=== PATIENT | male | born 1990 | race Caucasian/White ===

== ENCOUNTER 2018-01-03 04:24 | Emergency (ER) | payer OTHER ==
[2018-01-03] MEDS ORDERED: MAGNE/ALUM HYDROXD 30 ML UCUP ONE (04:53)
[2018-01-03] MEDS ORDERED: LIDOCAINE VISCOUS 2% SOLN 15 ML UDC ONE (04:55)
[2018-01-03 06:06] LABS: Absolute Monocytes 0.2 K/uL (0.1-1.3); Absolute Neutrophil 6.4 K/uL (1.8-8.0); Basophils % 0.3 % (0-1.3); Hematocrit 45.9 % (39.6-49.0); Lymphocytes % 12.6 % (15.3-44.8); MCH 29.8 pg (27.0-35.0); MCV 86.3 fL (80-100); MPV 11.1 fL (7.6-11.3); Monocytes % 3.2 % (3.3-12.3); RBC Red Blood Cell Count 5.33 M/uL (4.33-5.43)
[2018-01-03 06:18] LABS: ALT/SGPT 63 U/L (12-78); AST/SGOT 21 U/L (15-37); Albumin 4.3 g/dL (3.4-5.0); Alkaline Phosphatase 62 U/L (45-117); BUN Blood Urea Nitrogen 11 mg/dL (7-18); Bicarbonate 25 mmol/L (21-32); Bilirubin Direct < 0.1 mg/dL (0-0.2); Bilirubin Total 0.2 mg/dL (0.2-1.0); Glucose Level 120 mg/dL (74-106); Lipase 139 U/L (73-393); Potassium 3.8 mmol/L (3.5-5.1); Protein, Total 7.4 g/dL (6.4-8.2); Sodium Level 142 mmol/L (136-145)
--- NOTE | 2018-01-03 06:29 | EDPHYS ---
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 04:40 The patient presents with abdominal pain in the epigastric area. Onset: The tw4 symptoms/episode began/occurred today. The symptoms do not radiate. Associated signs and symptoms: none. The symptoms are described as dull. Modifying factors: The symptoms are alleviated by nothing, the symptoms are aggravated by alcohol. The patient has not experienced similar symptoms in the past. Historical: - Allergies: 04:38 No Known Allergies; lp1 - Home Meds: 04:38 None [Active]; lp1 - PMHx: 04:38 None; lp1 - PSHx: 04:38 None; lp1 - Immunization history:: Adult Immunizations up to date. - Social history:: Smoking status: Patient/guardian denies using tobacco. - Ebola Screening: : No symptoms or risks identified at this time. ROS: 04:40 Constitutional: Negative for fever, chills, and weight loss, Eyes: Negative for injury, tw4 pain, redness, and discharge, Cardiovascular: Negative for chest pain, palpitations, and edema, Respiratory: Negative for shortness of breath, cough, wheezing, and pleuritic chest pain, Back: Negative for injury and pain, MS/Extremity: Negative for injury and deformity, Skin: Negative for injury, rash, and discoloration. 04:40 Abdomen/GI: Positive for abdominal pain, Negative for nausea and vomiting, nausea, vomiting, and diarrhea, nausea, vomiting. Exam: 04:40 Constitutional: This is a well developed, well nourished patient who is awake, alert, tw4 and in no acute distress. Head/Face: Normocephalic, atraumatic. Chest/axilla: Normal chest wall appearance and motion. Nontender with no deformity. No lesions are appreciated. Cardiovascular: Regular rate and rhythm with a normal S1 and S2. No gallops, murmurs, or rubs. Normal PMI, no JVD. No pulse deficits. Respiratory: Lungs have equal breath sounds bilaterally, clear to auscultation and percussion. No rales, rhonchi or wheezes noted. No increased work of breathing, no retractions or nasal flaring. Abdomen/GI: Soft, non-tender, with normal bowel sounds. No distension or tympany. No guarding or rebound. No evidence of tenderness throughout. Back: No spinal tenderness. No costovertebral tenderness. Full range of motion. MS/ Extremity: Pulses equal, no cyanosis. Neurovascular intact. Full, normal range of motion. Neuro: Awake and alert, GCS 15, oriented to person, place, time, and situation. Cranial nerves II-XII grossly intact. Motor strength 5/5 in all extremities. Sensory grossly intact. Cerebellar exam normal. Normal gait. Vital Signs: 04:38 BP 118 / 80; Pulse 80; Resp 16; Temp 97.7(O); Pulse Ox 98% on R/A; Weight 81.65 kg; lp1 Height 5 ft. 8 in. (172.72 cm); Pain 7/10; 05:48 BP 116 / 80; Pulse 60; Resp 16; Pulse Ox 99% on R/A; rr5 06:27 BP 114 / 62; Pulse 60; Resp 18; Pulse Ox 98% on R/A; tl2 04:38 Body Mass Index 27.37 (81.65 kg, 172.72 cm) lp1 MDM: 04:31 Patient medically screened. tw4 06:29 Differential diagnosis: pancreatitis, Peptic Ulcer Disease, Perf. Duodenal Ulcer, Perf. tw4 Gastric Ulcer, Prostatitis. Data reviewed: vital signs, nurses notes. Data interpreted: Pulse oximetry: Interpretation: normal. Counseling: I had a detailed discussion with the patient and/or guardian regarding: the historical points, exam findings, and any diagnostic results supporting the discharge/admit diagnosis. Medication response: GI Cocktail relieved the patient's pain. The symptoms have resolved. Response to treatment: the patient's symptoms have resolved after treatment, and as a result, I will discharge patient. Special discussion: I discussed with the patient/guardian in detail that at this point there is no indication for admission to the hospital. It is understood, however, that if the symptoms persist or worsen the patient needs to return immediately for re-evaluation. 01/03 04:38 Order name: Basic Metabolic Panel tw4 01/03 04:38 Order name: CBC with Diff 4 01/03 04:38 Order name: Creatinine for Radiology tw4 01/03 04:38 Order name: Hepatic Function tw4 01/03 04:38 Order name: Lipase 4 01/03 04:38 Order name: IV Saline Lock; Complete Time: 04:54 tw4 01/03 04:38 Order name: Labs collected and sent; Complete Time: 04:54 tw4 Administered Medications: 04:40 CANCELLED (No ): GI Cocktail with - (Maalox Suspension 30 ml, lp1 Lidocaine Liquid 2 % 20 ml, Phenobarbital-Belladonna 10 ml) PO once 04:54 Drug: GI Cocktail without - (Maalox Suspension 30 ml, Lidocaine Liquid 2 % 15 rr5 ml) Route: PO; 06:38 Follow up: Response: No adverse reaction tl2 Disposition: 01/03/18 06:28 Discharged to Home. Impression: Gastritis, unspecified, without bleeding. - Condition is Stable. - Discharge Instructions: Gastritis, Adult. - Prescriptions for Protonix 40 mg Oral Tablet - take 1 tablet by ORAL route once daily; 30 tablet. - Medication Reconciliation Form, Thank You Letter, Antibiotic Education, Prescription Opioid Use form. - Follow up: Private Physician; When: Upon discharge from the Emergency Department; Reason: Recheck today's complaints, Continuance of care. - Problem is new. - Symptoms have improved. Signatures: Dispatcher [employer] EDMS Stacy Pérez RN RN lp1 Charissa Nina RN RN tl2 Gerard Pérez MD MD tw4 Gustavo Brown RN RN rr5 Corrections: (The following items were deleted from the chart) 04:40 04:38 GI Cocktail with - (Maalox 30 ml, Lidocaine 20 ml, lp1 Phenobarbital-Belladonna 10 ml) PO once ordered. tw4 06:38 06:28 01/03/2018 06:28 Discharged to Home. Impression: Gastritis, unspecified, without tl2 bleeding. Condition is Stable. Forms are Medication Reconciliation Form, Thank You Letter, Antibiotic Education, Prescription Opioid Use. Follow up: Private Physician; When: Upon discharge from the Emergency Department; Reason: Recheck today's complaints, Continuance of care. Problem is new. Symptoms have improved. tw4
--- NOTE | 2018-01-03 06:29 | ER ---
Nurse's Notes [facility] Name: Alton Chung Age: 27 yrs Sex: Male : 1990 Arrival Date: 01/03/2018 Time: 04:27 Bed 7 Private MD: Diagnosis: Gastritis, unspecified, without bleeding Presentation: 01/03 04:37 Presenting complaint: Patient states: Epigastric pain that began this AM with vomiting; lp1 Patient states hx of gallbladder pain frequently but worse this AM. Transition of care: patient was not received from another setting of care. Onset of symptoms was January 03, 2018. Risk Assessment: Do you want to hurt yourself or someone else? Patient reports no desire to harm self or others. Initial Sepsis Screen: Does the patient meet any 2 criteria? No. Patient's initial sepsis screen is negative. Does the patient have a suspected source of infection? No. Patient's initial sepsis screen is negative. Care prior to arrival: None. 04:37 Method Of Arrival: Wheelchair lp1 04:37 Acuity: SHANE 3 lp1 Historical: - Allergies: 04:38 No Known Allergies; lp1 - Home Meds: 04:38 None [Active]; lp1 - PMHx: 04:38 None; lp1 - PSHx: 04:38 None; lp1 - Immunization history:: Adult Immunizations up to date. - Social history:: Smoking status: Patient/guardian denies using tobacco. - Ebola Screening: : No symptoms or risks identified at this time. Screenin:39 Abuse screen: Denies threats or abuse. Denies injuries from another. Nutritional lp1 screening: No deficits noted. Tuberculosis screening: No symptoms or risk factors identified. Fall Risk None identified. Assessment: 04:56 General: Appears in no apparent distress. comfortable, Behavior is calm, cooperative, rr5 appropriate for age. Pain: Complains of pain in epigastric area Pain does not radiate. Pain currently is 7 out of 10 on a pain scale. Quality of pain is described as aching, Pain began suddenly, Is. Neuro: Level of Consciousness is Oriented to person, place, time, Moves all extremities. Cardiovascular: Capillary refill < 3 seconds. Respiratory: Airway is patent. GI: Abdomen is flat, non-distended, Reports vomiting. : No signs and/or symptoms were reported regarding the genitourinary system. EENT: No signs and/or symptoms were reported regarding the EENT system. Derm: No signs and/or symptoms reported regarding the dermatologic system. Musculoskeletal: No signs and/or symptoms reported regarding the musculoskeletal system. 06:36 Reassessment: Patient appears in no apparent distress at this time. Patient and/or tl2 family updated on plan of care and expected duration. Pain level reassessed. Patient is alert, oriented x 3, equal unlabored respirations, skin warm/dry/pink. Pt verbalized understanding of discharge instructions, need for follow up and prescription usage. Vital Signs: 04:38 BP 118 / 80; Pulse 80; Resp 16; Temp 97.7(O); Pulse Ox 98% on R/A; Weight 81.65 kg; lp1 Height 5 ft. 8 in. (172.72 cm); Pain 7/10; 05:48 BP 116 / 80; Pulse 60; Resp 16; Pulse Ox 99% on R/A; rr5 06:27 BP 114 / 62; Pulse 60; Resp 18; Pulse Ox 98% on R/A; tl2 04:38 Body Mass Index 27.37 (81.65 kg, 172.72 cm) lp1 ED Course: 04:27 Patient arrived in ED. ds1 04:31 Gerard Pérez MD is Attending Physician. tw4 04:38 Triage completed. lp1 04:39 Arm band placed on left wrist. lp1 04:39 Patient has correct armband on for positive identification. Pulse ox on. NIBP on. lp1 04:55 Inserted saline lock: 20 gauge in right antecubital area, using aseptic technique. rr5 Blood collected. inserted by [employer]. 06:36 No provider procedures requiring assistance completed. IV discontinued, intact, tl2 bleeding controlled, No redness/swelling at site. Pressure dressing applied. Administered Medications: 04:40 CANCELLED (No ): GI Cocktail with - (Maalox Suspension 30 ml, lp1 Lidocaine Liquid 2 % 20 ml, Phenobarbital-Belladonna 10 ml) PO once 04:54 Drug: GI Cocktail without - (Maalox Suspension 30 ml, Lidocaine Liquid 2 % 15 rr5 ml) Route: PO; 06:38 Follow up: Response: No adverse reaction tl2 Outcome: 06:28 Discharge ordered by . tw4 06:36 Discharged to home ambulatory, with family. tl2 06:36 Condition: stable 06:36 Discharge instructions given to patient, family, Instructed on discharge instructions, follow up and referral plans. medication usage, Demonstrated understanding of instructions, follow-up care, medications, Prescriptions given X 1. 06:38 Patient left the ED. tl2 Signatures: Geneva Ray ds1 Stacy Pérez RN RN lp1 Charissa Nina RN RN tl2 Gerard Pérez MD MD tw4 Gustavo Brown RN RN rr5
== END 2018-01-03 06:38 | disposition home or self-care (01) ==
LOC: ER 04:24
DX: K29.70 Gastritis, unspecified, without bleeding (principal)
CPT/HCPCS: 36415; 80048; 80076; 83690; 85025; 99284

== ENCOUNTER 2019-03-11 17:33 | Emergency (ER) | payer OTHER ==
[2019-03-11] MEDS ORDERED: IBUPROFEN 400 MG TAB ONE (17:57)
--- NOTE | 2019-03-11 18:52 | EDPHYS ---
Physician Documentation [facility] Name: Alton Chung Age: 28 yrs Sex: Male : 1990 Arrival Date: 03/11/2019 Time: 17:36 Bed 23 Private MD: ED Physician Jorge Alberto Costello HPI: 03/11 18:47 This 28 yrs old Male presents to ER via Ambulatory with complaints of Flu kb Symptoms. 18:47 The patient or guardian reports cough, that is intermittent, described as moderate, kb with no sputum, flu symptoms, low-grade fever, myalgias. Onset: The symptoms/episode began/occurred last night. Severity of symptoms: At their worst the symptoms were moderate, in the emergency department the symptoms are unchanged. Modifying factors: The symptoms are alleviated by nothing, the symptoms are aggravated by nothing. Associated signs and symptoms: Pertinent positives: fever, rhinorrhea. The patient has not experienced similar symptoms in the past. The patient has not recently seen a physician. Historical: - Allergies: 17:37 No Known Allergies; sg - Home Meds: 17:37 None [Active]; sg - PMHx: 17:37 None; sg - PSHx: 17:37 None; sg - Immunization history:: Adult Immunizations not up to date. - Social history:: Smoking status: Patient/guardian denies using tobacco. - Ebola Screening: : Patient negative for fever greater than or equal to 101.5 degrees Fahrenheit, and additional compatible Ebola Virus Disease symptoms Patient denies exposure to infectious person Patient denies travel to an Ebola-affected area in the 21 days before illness onset No symptoms or risks identified at this time. ROS: 18:46 Neck: Negative for injury, pain, and swelling, Cardiovascular: Negative for chest pain, kb palpitations, and edema, Abdomen/GI: Negative for abdominal pain, nausea, vomiting, diarrhea, and constipation, Back: Negative for injury and pain, MS/Extremity: Negative for injury and deformity, Skin: Negative for injury, rash, and discoloration. 18:46 Constitutional: Positive for body aches, chills, fatigue, fever, malaise. 18:46 ENT: Positive for rhinorrhea, sinus congestion. 18:46 Respiratory: Positive for cough. 18:46 Neuro: Positive for headache. Exam: 18:46 Constitutional: This is a well developed, well nourished patient who is awake, alert, kb and in no acute distress. Head/Face: Normocephalic, atraumatic. ENT: Nares patent. No nasal discharge, no septal abnormalities noted. Tympanic membranes are normal and external auditory canals are clear. Oropharynx with no redness, swelling, or masses, exudates, or evidence of obstruction, uvula midline. Mucous membranes moist. Neck: Trachea midline, no thyromegaly or masses palpated, and no cervical lymphadenopathy. Supple, full range of motion without nuchal rigidity, or vertebral point tenderness. No Meningismus. Chest/axilla: Normal chest wall appearance and motion. Nontender with no deformity. No lesions are appreciated. Cardiovascular: Regular rate and rhythm with a normal S1 and S2. No gallops, murmurs, or rubs. Normal PMI, no JVD. No pulse deficits. Respiratory: Lungs have equal breath sounds bilaterally, clear to auscultation and percussion. No rales, rhonchi or wheezes noted. No increased work of breathing, no retractions or nasal flaring. Abdomen/GI: Soft, non-tender, with normal bowel sounds. No distension or tympany. No guarding or rebound. No evidence of tenderness throughout. Skin: Warm, dry with normal turgor. Normal color with no rashes, no lesions, and no evidence of cellulitis. MS/ Extremity: Pulses equal, no cyanosis. Neurovascular intact. Full, normal range of motion. Neuro: Awake and alert, GCS 15, oriented to person, place, time, and situation. Cranial nerves II-XII grossly intact. Motor strength 5/5 in all extremities. Sensory grossly intact. Cerebellar exam normal. Normal gait. Vital Signs: 17:40 BP 152 / 69; Pulse 120; Resp 18; Temp 101.1; Pulse Ox 99% on R/A; Weight 81.65 kg; sg Height 5 ft. 8 in. (172.72 cm); 18:56 BP 142 / 74; Pulse 107; Resp 18; Temp 99.8(O); Pulse Ox 100% on R/A; mg2 17:40 Body Mass Index 27.37 (81.65 kg, 172.72 cm) sg MDM: 17:46 Patient medically screened. kb 18:46 Data reviewed: vital signs, nurses notes. Data interpreted: Pulse oximetry: on room air kb is 99 %. Interpretation: normal. 18:51 Counseling: I had a detailed discussion with the patient and/or guardian regarding: the kb historical points, exam findings, and any diagnostic results supporting the discharge/admit diagnosis, lab results, the need for outpatient follow up, a family practitioner, to return to the emergency department if symptoms worsen or persist or if there are any questions or concerns that arise at home. 03/11 17:48 Order name: Flu; Complete Time: 18:52 kb Administered Medications: 18:04 Drug: Ibuprofen 800 mg Route: PO; mg2 19:02 Follow up: Response: No adverse reaction; Temperature is decreased mg2 19:01 Drug: Tamiflu 75 mg Route: PO; mg2 19:02 Follow up: Response: No adverse reaction; Medication administered at discharge. mg2 Disposition: 03/11/19 18:51 Discharged to Home. Impression: Influenza due to certain identified influenza viruses. - Condition is Stable. - Discharge Instructions: Influenza, Adult, [id number]. - Prescriptions for Tamiflu 75 mg Oral Capsule - take 1 capsule by ORAL route every 12 hours for 5 days; 10 capsule. - Medication Reconciliation Form, Thank You Letter, Antibiotic Education, Prescription Opioid Use, Work release form form. - Follow up: Emergency Department; When: As needed; Reason: Worsening of condition. Follow up: Private Physician; When: 2 - 3 days; Reason: Recheck today's complaints, Continuance of care, Re-evaluation by your physician. Addendum: 03/18/2019 07:25 Co-signature as Attending Physician, Jorge Alberto Costello MD I agree with the assessment and c rodriguez plan of care. Signatures: Dispatcher [employer] Ale Braxton, GROUND SUPPORT EQUIPMENT MECHANIC-C GROUND SUPPORT EQUIPMENT MECHANIC-[employer] Sy, Jorge Alberto Mishra RN, MD MD cha Gardose, Michele, RN RN mg2 Corrections: (The following items were deleted from the chart) 03/11 19:04 18:51 03/11/2019 18:51 Discharged to Home. Impression: Influenza due to certain mg2 identified influenza viruses. Condition is Stable. Forms are Medication Reconciliation Form, Thank You Letter, Antibiotic Education, Prescription Opioid Use. Follow up: Emergency Department; When: As needed; Reason: Worsening of condition. Follow up: Private Physician; When: 2 - 3 days; Reason: Recheck today's complaints, Continuance of care, Re-evaluation by your physician. kb
--- NOTE | 2019-03-11 18:52 | ER ---
Nurse's Notes [facility] Name: Alton Chung Age: 28 yrs Sex: Male : 1990 Arrival Date: 03/11/2019 Time: 17:36 Bed 23 Private MD: Diagnosis: Influenza due to certain identified influenza viruses Presentation: 03/11 17:41 Presenting complaint: Patient states: fever chills body aches that started last night, sg reports having nausea that started last night as well. Transition of care: patient was not received from another setting of care. Onset of symptoms was March 11, 2019. Risk Assessment: Do you want to hurt yourself or someone else? Patient reports no desire to harm self or others. Initial Sepsis Screen: Does the patient meet any 2 criteria? HR > 90 bpm. Does the patient have a suspected source of infection? No. Patient's initial sepsis screen is negative. Care prior to arrival: None. 17:41 Method Of Arrival: Ambulatory sg 17:41 Acuity: SHANE 3 sg Historical: - Allergies: 17:37 No Known Allergies; sg - Home Meds: 17:37 None [Active]; sg - PMHx: 17:37 None; sg - PSHx: 17:37 None; sg - Immunization history:: Adult Immunizations not up to date. - Social history:: Smoking status: Patient/guardian denies using tobacco. - Ebola Screening: : Patient negative for fever greater than or equal to 101.5 degrees Fahrenheit, and additional compatible Ebola Virus Disease symptoms Patient denies exposure to infectious person Patient denies travel to an Ebola-affected area in the 21 days before illness onset No symptoms or risks identified at this time. Screenin:39 Abuse screen: Denies threats or abuse. Denies injuries from another. Nutritional mg2 screening: No deficits noted. Tuberculosis screening: No symptoms or risk factors identified. Fall Risk None identified. Assessment: 18:38 General: Appears in no apparent distress. comfortable, Behavior is calm, cooperative. mg2 Pain: Denies pain. Neuro: Level of Consciousness is awake, alert, obeys commands, Oriented to person, place, time, situation. Cardiovascular: Capillary refill < 3 seconds Patient's skin is warm and dry. Respiratory: Reports cough that is Airway is patent Respiratory effort is even, unlabored, Respiratory pattern is regular, symmetrical. GI: No signs and/or symptoms were reported involving the gastrointestinal system. : No signs and/or symptoms were reported regarding the genitourinary system. EENT: No signs and/or symptoms were reported regarding the EENT system. Derm: Skin is intact, is healthy with good turgor, Skin is pink, warm \T\ dry. normal. Musculoskeletal: Circulation, motion, and sensation intact. Capillary refill < 3 seconds. Vital Signs: 17:40 BP 152 / 69; Pulse 120; Resp 18; Temp 101.1; Pulse Ox 99% on R/A; Weight 81.65 kg; sg Height 5 ft. 8 in. (172.72 cm); 18:56 BP 142 / 74; Pulse 107; Resp 18; Temp 99.8(O); Pulse Ox 100% on R/A; mg2 17:40 Body Mass Index 27.37 (81.65 kg, 172.72 cm) ED Course: 17:36 Patient arrived in ED. mr 17:36 Arm band placed on. sg 17:37 Ale Suarez FNP-C [facility]. kb 17:37 Jorge Alberto Costello MD is Attending Physician. kb 17:41 Triage completed. sg 17:46 Jordan Hernandes, WADE is Primary Nurse. mg2 18:04 No provider procedures requiring assistance completed. Patient did not have IV access mg2 during this emergency room visit. 18:04 Flu and/or RSV swab sent to lab. mg2 18:39 Patient has correct armband on for positive identification. mg2 Administered Medications: 18:04 Drug: Ibuprofen 800 mg Route: PO; mg2 19:02 Follow up: Response: No adverse reaction; Temperature is decreased mg2 19:01 Drug: Tamiflu 75 mg Route: PO; mg2 19:02 Follow up: Response: No adverse reaction; Medication administered at discharge. mg2 Outcome: 18:51 Discharge ordered by MD. kb 19:03 Discharged to home ambulatory, with family. mg2 19:03 Condition: stable 19:03 Discharge instructions given to patient, family, Instructed on discharge instructions, follow up and referral plans. medication usage, Demonstrated understanding of instructions, follow-up care, medications, Prescriptions given X 1. 19:04 Patient left the ED. mg2 Signatures: Ale Suarez FNP-C FNP-Hill Rowe RN RN sg Rivera, Mary mr Jordan Hernandes, RN RN mg2
[2019-03-11] MEDS ORDERED: OSELTAMIVIR 75 MG CAP ONE (19:00)
[2019-03-11 19:11] VITALS: BP 142/74; TEMP 99.8; O2SAT 100
== END 2019-03-11 19:04 | disposition home or self-care (01) ==
LOC: ER 17:33
DX: J10.1 Influenza due to other identified influenza virus with other respiratory manifestations (principal)
CPT/HCPCS: 87804; 99283

== ENCOUNTER 2019-03-13 22:01 | Emergency (ER) | payer BC, OTHER ==
[2019-03-13] MEDS ORDERED: HYDROCODONE/CHLORPHEN 5 ML/OSYR ONE (22:55)
[2019-03-13] MEDS ORDERED: PROMETHAZINE 25 MG TABLET ONE (22:55)
--- NOTE | 2019-03-14 01:07 | ER ---
Nurse's Notes [facility] Name: Alton Chung Age: 28 yrs Sex: Male : 1990 Arrival Date: 03/13/2019 Time: 22:04 Bed 7 Private MD: Lorenzo Dos Santos E Diagnosis: Influenza due to other identified influenza virus;Nausea Presentation: 03/13 22:19 Presenting complaint: Patient states: he was diagnosed with the flu Monday and started bb on tamiflu but his symptoms are worsening his fever was 103 approx an hour ago he has been alternating tylenol and motrin but the fever does not go away. Transition of care: patient was not received from another setting of care. Onset of symptoms was March 13, 2019. Risk Assessment: Do you want to hurt yourself or someone else? Patient reports no desire to harm self or others. Initial Sepsis Screen: Does the patient meet any 2 criteria? RR > 20 per min. HR > 90 bpm. Yes Does the patient have a suspected source of infection? Yes: Other: viral. Care prior to arrival: None. 22:19 Method Of Arrival: Ambulatory bb 22:19 Acuity: SHANE 3 bb Historical: - Allergies: 22:22 No Known Allergies; bb - Home Meds: 22:22 Adderall oral oral [Active]; bb - PMHx: 22:22 ADD/ADHD; bb - PSHx: 22:22 Appendectomy; left leg; melanoma; bb - Immunization history:: Adult Immunizations up to date. - Social history:: Smoking status: Patient/guardian denies using tobacco. - Ebola Screening: : No symptoms or risks identified at this time. Screenin:20 Abuse screen: Denies threats or abuse. Denies injuries from another. Nutritional rr5 screening: No deficits noted. Tuberculosis screening: No symptoms or risk factors identified. Fall Risk None identified. Total Bojorquez Fall Scale indicates No Risk (0-24 pts). Assessment: 22:20 General: Appears in no apparent distress. uncomfortable, Behavior is calm, cooperative, rr5 appropriate for age. Pain: Complains of pain in head Pain does not radiate. Pain currently is 7 out of 10 on a pain scale. Quality of pain is described as pressure, Pain began gradually, Is intermittent. 22:20 Neuro: Level of Consciousness is awake, alert, obeys commands, Oriented to person, rr5 place, time, situation, Appropriate for age Reports headache. Cardiovascular: Capillary refill < 3 seconds Patient's skin is warm and dry. Respiratory: Reports flu symptoms Airway is patent Respiratory effort is even, unlabored, Respiratory pattern is regular, symmetrical. GI: No signs and/or symptoms were reported involving the gastrointestinal system. : No signs and/or symptoms were reported regarding the genitourinary system. EENT: No signs and/or symptoms were reported regarding the EENT system. Derm: Skin is intact, is healthy with good turgor, Skin temperature is warm. Musculoskeletal: Circulation, motion, and sensation intact. Capillary refill < 3 seconds. 03/14 00:20 Reassessment: Patient appears in no apparent distress at this time. No changes from rr5 previously documented assessment. Patient and/or family updated on plan of care and expected duration. Pain level reassessed. Patient is alert, oriented x 3, equal unlabored respirations, skin warm/dry/pink. awaiting for result. 01:00 Reassessment: Patient appears in no apparent distress at this time. Patient is alert, rr5 oriented x 3, equal unlabored respirations, skin warm/dry/pink. ED provider informed for the latest Temperature of 100.7 with order made and carried out. discharge instruction given and explained without complaints made. verbalized understading. Vital Signs: 03/13 22:22 BP 134 / 88; Pulse 109; Resp 24 S; Temp 98.9(O); Pulse Ox 96% on R/A; Weight 81.65 kg bb (R); Height 5 ft. 8 in. (172.72 cm) (R); Pain 7/10; 03/14 00:00 BP 132 / 68; Pulse 98; Resp 20; Pulse Ox 98% on R/A; Pain 7/10; rr5 01:00 BP 122 / 71; Pulse 85; Resp 19; Temp 100.7; Pulse Ox 98% on R/A; rr5 03/13 22:22 Body Mass Index 27.37 (81.65 kg, 172.72 cm) bb ED Course: 03/13 22:04 Patient arrived in ED. es 22:05 Lorenzo Dos Santos MD is Private Physician. es 22:08 Marisela Albert FNP-C is PHCP. snw 22:08 Kenrick Taylor MD is Attending Physician. snw 22:20 Patient has correct armband on for positive identification. Bed in low position. Call rr5 light in reach. Pulse ox on. NIBP on. 22:21 Triage completed. bb 22:22 Arm band placed on Patient placed in an exam room, on a stretcher, on pulse oximetry. bb 23:19 Gustavo Brown, WADE is Primary Nurse. rr5 03/14 00:52 Lorenzo Dos Santos MD is Referral Physician. snw 01:00 No provider procedures requiring assistance completed. Patient did not have IV access rr5 during this emergency room visit. 01:20 Primary Nurse role handed off by Gustavo Brown RN rr5 01:20 Gustavo Brown RN is Primary Nurse. rr5 Administered Medications: 03/13 22:56 Drug: Tussionex Pennkinetic ER 5 ml Route: PO; rr5 03/14 00:00 Follow up: Response: No adverse reaction rr5 03/13 22:56 Drug: Phenergan 25 mg Route: PO; rr5 03/14 00:00 Follow up: Response: No adverse reaction rr5 01:00 Drug: Tylenol 1000 mg Route: PO; rr5 01:10 Follow up: Response: No adverse reaction; Medication administered at discharge. rr5 Outcome: 00:53 Discharge ordered by . snw 01:10 Discharged to home ambulatory. rr5 01:10 Condition: stable 01:10 Discharge instructions given to patient, Instructed on discharge instructions, follow rr5 up and referral plans. medication usage, Demonstrated understanding of instructions, follow-up care, medications, Prescriptions given X 2. 01:13 Patient left the ED. rr5 01:21 Patient left the ED. rr5 Signatures: Marisela Albert, BUSINESS TRANSFORMATION ANALYST-C BUSINESS TRANSFORMATION ANALYST-CsnAnaly Andrade Brenda, RN RN bb Gustavo Brown, WADE RN rr5 Corrections: (The following items were deleted from the chart) : 01:45 No provider procedures requiring assistance completed. rr5 rr5 :11 01:45 Patient did not have IV access during this emergency room visit. rr5 rr5
--- NOTE | 2019-03-14 01:08 | EDPHYS ---
Physician Documentation [facility] Name: Alton Chung Age: 28 yrs Sex: Male : 1990 Arrival Date: 03/13/2019 Time: 22:04 Bed 7 Private MD: Lorenzo Dos Santos E ED Physician Kenrick Taylor HPI: 03/13 22:54 This 28 yrs old Male presents to ER via Ambulatory with complaints of Flu snw Symptoms. 22:54 Onset: The symptoms/episode began/occurred suddenly, 4 day(s) ago. Associated signs and snw symptoms: Pertinent positives: continued malaise, sore throat, headache, ear and head pressure. It is unknown whether or not the patient has had similar symptoms in the past. The patient has been recently seen by a physician: denise with influenza 3 days ago, taking Tamiflu. Historical: - Allergies: 22:22 No Known Allergies; bb - Home Meds: 22:22 Adderall oral oral [Active]; bb - PMHx: 22:22 ADD/ADHD; bb - PSHx: 22:22 Appendectomy; left leg; melanoma; bb - Immunization history:: Adult Immunizations up to date. - Social history:: Smoking status: Patient/guardian denies using tobacco. - Ebola Screening: : No symptoms or risks identified at this time. ROS: 22:53 Eyes: Negative for injury, pain, redness, and discharge. snw 22:53 Neck: Negative for injury, pain, and swelling, Cardiovascular: Negative for chest pain, palpitations, and edema. 22:53 Abdomen/GI: Negative for abdominal pain, nausea, vomiting, diarrhea, and constipation, Back: Negative for injury and pain, : Negative for injury, bleeding, discharge, and swelling, MS/Extremity: Negative for injury and deformity, Skin: Negative for injury, rash, and discoloration, Neuro: Negative for headache, weakness, numbness, tingling, and seizure, Psych: Negative for depression, anxiety, suicide ideation, homicidal ideation, and hallucinations. 22:53 Constitutional: Positive for body aches, fatigue, fever, malaise, poor PO intake. 22:53 ENT: Positive for ear pain, sinus congestion, sinus pain, sore throat. 22:53 Respiratory: Positive for cough, with no reported sputum. Exam: 22:51 Head/Face: Normocephalic, atraumatic. Eyes: Pupils equal round and reactive to light, snw extra-ocular motions intact. Lids and lashes normal. Conjunctiva and sclera are non-icteric and not injected. Cornea within normal limits. Periorbital areas with no swelling, redness, or edema. 22:51 Chest/axilla: Normal chest wall appearance and motion. Nontender with no deformity. No lesions are appreciated. 22:51 Respiratory: Lungs have equal breath sounds bilaterally, clear to auscultation and percussion. No rales, rhonchi or wheezes noted. No increased work of breathing, no retractions or nasal flaring. Abdomen/GI: Soft, non-tender, with normal bowel sounds. No distension or tympany. No guarding or rebound. No evidence of tenderness throughout. Back: No spinal tenderness. No costovertebral tenderness. Full range of motion. Skin: Warm, dry with normal turgor. Normal color with no rashes, no lesions, and no evidence of cellulitis. MS/ Extremity: Pulses equal, no cyanosis. Neurovascular intact. Full, normal range of motion. Neuro: Awake and alert, GCS 15, oriented to person, place, time, and situation. Cranial nerves II-XII grossly intact. Motor strength 5/5 in all extremities. Sensory grossly intact. Cerebellar exam normal. Normal gait. Psych: Awake, alert, with orientation to person, place and time. Behavior, mood, and affect are within normal limits. 22:51 Constitutional: The patient appears alert, awake, uncomfortable. 22:51 ENT: TM's: not visable, because of cerumen, Nose: is normal, Mouth: Oral mucosa: moist, Posterior pharynx: erythema, that is moderate, Voice: is hoarse. 22:51 Cardiovascular: Rate: tachycardic, Pulses: no pulse deficits are appreciated, Heart sounds: normal. Vital Signs: 22:22 BP 134 / 88; Pulse 109; Resp 24 S; Temp 98.9(O); Pulse Ox 96% on R/A; Weight 81.65 kg bb (R); Height 5 ft. 8 in. (172.72 cm) (R); Pain 7/10; 02 00:00 BP 132 / 68; Pulse 98; Resp 20; Pulse Ox 98% on R/A; Pain 7/10; rr5 01:00 BP 122 / 71; Pulse 85; Resp 19; Temp 100.7; Pulse Ox 98% on R/A; rr5 03/13 22:22 Body Mass Index 27.37 (81.65 kg, 172.72 cm) bb MDM: 03/13 22:37 Patient medically screened. snw 03/14 00:54 Data reviewed: vital signs, nurses notes. Data interpreted: Pulse oximetry: on room air snw is 98 %. Interpretation: normal. Counseling: I had a detailed discussion with the patient and/or guardian regarding: the historical points, exam findings, and any diagnostic results supporting the discharge/admit diagnosis, lab results, the need for outpatient follow up, to return to the emergency department if symptoms worsen or persist or if there are any questions or concerns that arise at home. Special discussion: Based on the history and exam findings, there is no indication for further emergent testing or inpatient evaluation. I discussed with the patient/guardian the need to see the primary care provider for further evaluation of the symptoms. 03/13 22:45 Order name: Strep; Complete Time: 00:14 snw 03/14 00:35 Order name: Throat Culture EDMS Administered Medications: 03/13 22:56 Drug: Tussionex Pennkinetic ER 5 ml Route: PO; rr5 03/14 00:00 Follow up: Response: No adverse reaction rr5 03/13 22:56 Drug: Phenergan 25 mg Route: PO; rr5 03/14 00:00 Follow up: Response: No adverse reaction rr5 01:00 Drug: Tylenol 1000 mg Route: PO; rr5 01:10 Follow up: Response: No adverse reaction; Medication administered at discharge. rr5 Disposition: 01:48 Co-signature as Attending Physician, Kenrick Taylor MD. pkl Disposition: 03/14/19 00:53 Discharged to Home. Impression: Influenza due to other identified influenza virus, Nausea. - Condition is Stable. - Discharge Instructions: Influenza, Adult, Nausea and Vomiting, Adult. - Prescriptions for Ultram 50 mg Oral Tablet - take 1 tablet by ORAL route every 6 hours As needed; 12 tablet. promethazine 25 mg Oral Tablet - take 1 tablet by ORAL route every 6 hours As needed; 20 tablet. - Work release form, Medication Reconciliation Form, Thank You Letter, Antibiotic Education, Prescription Opioid Use form. - Follow up: Lorenzo Dos Santos MD; When: 1 week; Reason: Recheck today's complaints, Continuance of care, Re-evaluation by your physician. Follow up: Emergency Department; When: As needed; Reason: Worsening of condition. Signatures: Dispatcher [employer] EDMS Kenrick Taylor MD MD pkl Therrien, Shelly, MAMMOGRAPHY TECH-C MAMMOGRAPHY TECH-Csnw Ileana Quinonez RN RN Gustavo Cook RN RN rr5 Corrections: (The following items were deleted from the chart) 01:13 00:53 03/14/2019 00:53 Discharged to Home. Impression: Influenza due to other rr5 identified influenza virus; Nausea. Condition is Stable. Forms are Medication Reconciliation Form, Thank You Letter, Antibiotic Education, Prescription Opioid Use. Follow up: Lorenzo Dos Santos; When: 1 week; Reason: Recheck today's complaints, Continuance of care, Re-evaluation by your physician. Follow up: Emergency Department; When: As needed; Reason: Worsening of condition. snw 01:21 01:13 03/14/2019 00:53 Discharged to Home. Impression: Influenza due to other rr5 identified influenza virus; Nausea. Condition is Stable. Discharge Instructions: Influenza, Adult, Nausea and Vomiting, Adult. Prescriptions for Ultram 50 mg Oral Tablet - take 1 tablet by ORAL route every 6 hours As needed; 12 tablet, promethazine 25 mg Oral Tablet - take 1 tablet by ORAL route every 6 hours As needed; 20 tablet. and Forms are Medication Reconciliation Form, Thank You Letter, Antibiotic Education, Prescription Opioid Use, Work release form. Follow up: Lorenzo Dos Santos; When: 1 week; Reason: Recheck today's complaints, Continuance of care, Re-evaluation by your physician. Follow up: Emergency Department; When: As needed; Reason: Worsening of condition. rr5
[2019-03-14] MEDS ORDERED: ACETAMINOPHEN 500 MG TAB ONE (01:09)
[2019-03-14 01:29] VITALS: TEMP 98.9
[2019-03-14 01:30] VITALS: BP 132/68; O2SAT 98
== END 2019-03-14 01:21 | disposition home or self-care (01) ==
LOC: ER 22:01
DX: J10.1 Influenza due to other identified influenza virus with other respiratory manifestations (principal); R11.0 Nausea; F90.9 Attention-deficit hyperactivity disorder, unspecified type
CPT/HCPCS: 87070; 87081; 99283; Q0169

== ENCOUNTER 2020-01-10 16:06 | Emergency (ER) | payer OTHER, BC ==
[2020-01-10] MEDS ORDERED: ONDANSETRON 4 MG (ODT) TAB ONE (16:22)
[2020-01-10] MEDS ORDERED: MORPHINE 4 MG/ML SYR ONE ×3 (16:22→19:02)
[2020-01-10 16:28] LABS: Basophils % 0.3 % (0-1.3); Hematocrit 41.3 % (39.6-49.0); Lymphocytes % 5.8 % (15.3-44.8); MPV 10.8 fL (7.6-11.3); RBC Red Blood Cell Count 4.76 M/uL (4.33-5.43)
[2020-01-10 16:45] LABS: Potassium 3.9 mmol/L (3.5-5.1)
[2020-01-10 16:53] LABS: Blood Morphology Comment NOT SEEN (NOT SEEN); Platelet Estimate ADEQ; White Blood Cell Scan OK (OK)
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
[2020-01-10 19:05] VITALS: TEMP 98
[2020-01-10 19:09] VITALS: O2SAT 100
[2020-01-10 19:12] VITALS: BP 120/69
== END 2020-01-10 19:00 | disposition short-term general hospital (02) ==
LOC: ER 16:06
DX: S30.0XXA Contusion of lower back and pelvis, initial encounter (principal); V28.4XXA Motorcycle driver injured in noncollision transport accident in traffic accident, initial encounter
CPT/HCPCS: 85025; 80048; 36415; 82565; 71260; 74177; 96375; 96374; 99285; Q9967; G0390

== ENCOUNTER 2023-02-18 08:43 | Emergency (ER) | payer BC ==
--- OUTSIDE RECORDS SUMMARY | 2023-02-18 08:47 | XMS REPORT | Continuity of Care Document ---
Author Name Unknown Address [address] [place] [address] [address]. [address] [place] [id number] [facility] thconnect Address [address] [facility] [place] [place] [address] Care Team Providers Care Principal Archaeologist Name Role Phone FRANCIS MCKEON Primary Care Physician UnavailOLENA Gomez Attending Clinician Unavailable HIREN GARCÍA Attending Clinician Unavail able KAUSHAL BERMEO Attending Clinician Unavailable CALI HUYNH Attending Clinician Unavailable TITI WHITTEN Attending Clinician Unavailable RONAK SALAZAR Attending Clinician Unavailable Payers Payer Name Policy Type Policy Number Effective Date Expirati on Date Source [id number] PPO AND OUT OF STATE [id number] 2019 00:00:00 Encounters Start Date/Time End Date/Time Encounter Type Admission Type Attending Clinicians Care Facility Care Department Encounter ID Source 2022-04-06 15:03:51 Outpatient [facility] [id number] [facility] 2022-04-01 16:02:28 Outpatient [facility] [id number] [facility] 2022-01-04 05:35:40 Outpatient [facility] [id number] [facility] 2021-08-22 01:05:56 Outpatient [facility] [id number] [facility] 2021-08-18 09:15:17 Outpatient OLENA RAMIREZ [facility] [id number] [facility] 2021-08-13 10:59:32 Outpatient [facility] [id number] [facility] 2021-08-06 14:54:46 Outpatient [facility] [id number] [facility] 2021-08-04 09:05:44 Outpatient HIREN GARCÍA [facility] [id number] [facility] 2021-08-03 01:03:57 Outpatient OLENA RAMIREZ [facility] [id number] [facility] 2021-07-11 01:05:13 Outpatient [facility] [id number] [facility] 2021-07-08 01:03:57 Outpatient HIREN GARCÍA [facility] [id number] [facility] 2021-07-07 08:44:45 Outpatient OLENA RAMIREZ [facility] [id number] [facility] 2021-07-06 07:50:48 Outpatient [facility] [id number] [facility] 2021-07-05 09:00:20 Outpatient OLENA RAMIREZ [facility] [id number] [facility] 2021-06-09 08:47:40 Outpatient HIREN GARCÍA [facility] [id number] [facility] 2021-06-07 09:55:53 Outpatient [facility] [id number] [facility] 2021-06-03 10:43:56 Outpatient [facility] [id number] [facility] 2021-05-26 13:27:57 Outpatient [facility] [id number] [facility] 2021-05-20 10:31:33 Outpatient HIREN GARCÍA [facility] [id number] [facility] 2021-05-20 09:57:03 Outpatient [facility] [id number] [facility] 2021-05-19 10:10:31 Outpatient [facility] [id number] [facility] 2021-05-19 10:10:09 Outpatient [facility] [id number] [facility] 2021-05-19 10:06:15 Outpatient HIREN GARCÍA [facility] [id number] [facility] 2021-05-19 09:57:12 Outpatient OLENA RAMIREZ [facility] [id number] [facility] 2021-05-14 10:44:00 Outpatient [facility] [id number] [facility] 2021-05-04 08:42:08 Outpatient OLENA RAMIREZ [facility] [id number] [facility] 2021-04-26 12:45:17 Outpatient HIREN GARCÍA [facility] [id number] [facility] 2021-04-26 11:15:00 Outpatient [facility] [id number] [facility] 2021-04-26 11:15:00 Outpatient [facility] [id number] [facility] 2021-04-23 10:51:39 Outpatient [facility] [id number] [facility] 2021-04-22 09:42:00 Outpatient KAUSHAL BERMEO [facility] [id number] [facility] 2021-04-22 09:20:11 Outpatient [facility] [id number] [facility] 2021-04-13 11:05:33 Outpatient KAUSHAL BERMEO [facility] [id number] [facility] 2021-04-13 10:47:44 Outpatient CALI HUYNH [facility] [id number] [facility] 2021-04-13 10:45:41 Outpatient TITI WHITTEN [facility] [id number] [facility] 2021-02-12 00:00:00 2021-02-12 00:00:00 Outpatient RONAK SALAZAR [facility] [id number] [address] [facility]
[2023-02-18 09:44] LABS: Absolute Lymphocytes (CBC) 2.4 K/uL (0.7-4.9); Lymphocytes % 28.6 % (15.3-44.8); MCV 87.3 fL (80-100); MPV 10.1 fL (7.6-11.3); Platelets 153 thou/uL (152-406); RBC Red Blood Cell Count 5.38 M/uL (4.33-5.43)
[2023-02-18 10:06] LABS: Albumin 4.1 g/dL (3.4-5.0); Bilirubin Total 0.2 mg/dL (0.2-1.0); C-Reactive Protein 13.1 mg/L (<3.00); Potassium 4.1 mEq/L (3.5-5.1); Protein, Total 7.5 g/dL (6.4-8.2)
[2023-02-18] MEDS ORDERED: CLINDAMYCIN 600MG/D5W 50 ML IV ONE (10:22)
--- NOTE | 2023-02-18 10:50 | RAD REPORT ---
EXAM DESCRIPTION: RAD - Hand Right 3 View - 02/18/2023 10:39 am CLINICAL HISTORY: r/o osteo second finger COMPARISON: No comparisons TECHNIQUE: Right hand, 3 views. FINDINGS: No fracture is identified. Sequelae of fusion with a cannulated screw along the ulnar styloid process. At least moderate arthrit ic changes at the radiocarpal articulation. Sclerotic changes in the body of the lunate with a small focal lucency. There is no dislocation or periosteal reaction noted. No foreign body or other soft tissue abnormalit y. IMPRESSION: No acute osseous abnormality. Chronic arthritic changes along the radiocarpal articulati on, with a fusion screw along the lateral aspect of the radius.
--- NOTE | 2023-02-18 10:58 | ER ---
Nurse's Notes [facility] Name: Alton Chung Age: 32 yrs Sex: Male : 1990 Arrival Date: 02/18/2023 Time: 08:43 Bed 13 Private MD: Diagnosis: Cellulitis of finger-right pointer Presentation: 02/18 09:00 Chief complaint: Worsening right index finger swelling and discoloration x 5-6 days. hb Concerned about possible spider bite as dog recently had to have leg amputated due to spider bite. Coronavirus screen: At this time, the client does not indicate any symptoms associated with coronavirus-19. Ebola Screen: No symptoms or risks identified at this time. Initial Sepsis Screen: Does the patient meet any 2 criteria? No. Patient's initial sepsis screen is negative. Does the patient have a suspected source of infection? No. Patient's initial sepsis screen is negative. Risk Assessment: Do you want to hurt yourself or someone else? Patient reports no desire to harm self or others. Onset of symptoms was February 12, 2023. 09:00 Method Of Arrival: Ambulatory 09:00 Acuity: SHANE 3 hb Historical: - Allergies: 09:02 No Known Allergies; hb - Home Meds: 09:02 Adderall Oral [Active]; hb 09:05 Adderall Oral [Active]; db - PMHx: 09:02 ADD/ADHD; hb 09:05 ADD/ADHD; db - PSHx: 09:02 Wrist - Right; Shoulder - Left; Leg - Left; Appendectomy; hb 09:05 Appendectomy; Leg - Left; Shoulder - Left; Wrist - Right; db - Immunization history:: Adult Immunizations up to date. - Social history:: Smoking status: . Screenin:07 [facility] ED Fall Risk Assessment (Adult) History of falling in the last 3 months, db including since admission No falls in past 3 months (0 pts) Confusion or Disorientation No (0 pts) Intoxicated or Sedated No (0 pts) Impaired Gait No (0 pts) Mobility Assist Device Used No (0 pt) Altered Elimination No (0 pt) Score/Fall Risk Level 0 - 2 = Low Risk Oriented to surroundings, Maintained a safe environment. Abuse screen: Denies threats or abuse. Denies injuries from another. Nutritional screening: No deficits noted. Tuberculosis screening: No symptoms or risk factors identified. Assessment: 09:01 Reassessment: Patient appears in no apparent distress at this time. Patient and/or db family updated on plan of care and expected duration. Pain level reassessed. Patient is alert, oriented x 3, equal unlabored respirations, skin warm/dry/pink. RIGHT INDEX FINGER WITH DISCOLORATION PURPLISH. STATES MAY HAVE BEEN BIT BY A SPIDER. NOTED SMALL SCABBED OVER AREA. NEURO INTACT. General: Appears in no apparent distress. comfortable, Behavior is calm, cooperative. Pain: Complains of pain in right hand. Neuro: Level of Consciousness is awake, alert, obeys commands, Oriented to person, place, time, situation. Respiratory: Airway is patent Respiratory effort is even, unlabored, Respiratory pattern is regular, symmetrical. Musculoskeletal: Circulation, motion, and sensation intact. Capillary refill < 3 seconds, Range of motion: intact in all extremities. 09:45 Reassessment: Patient appears in no apparent distress at this time. Patient and/or db family updated on plan of care and expected duration. Pain level reassessed. Patient is alert, oriented x 3, equal unlabored respirations, skin warm/dry/pink. 10:40 Reassessment: Patient appears in no apparent distress at this time. Patient and/or db family updated on plan of care and expected duration. Pain level reassessed. Patient is alert, oriented x 3, equal unlabored respirations, skin warm/dry/pink. 10:41 Reassessment: PATIENT AMBULATORY TO RESTROOM. db 11:09 Reassessment:. db Vital Signs: 09:00 BP 156 / 99; Pulse 59; Resp 16; Temp 97.5(TE); Pulse Ox 100% on R/A; Weight 97.52 kg; hb Height 5 ft. 7 in. ; Pain 2/10; 09:00 BP 145 / 101; Pulse 96; Resp 18; Pulse Ox 99% on R/A; db 10:30 BP 141 / 78; Pulse 85; Resp 16; Pulse Ox 97% ; db 09:00 Body Mass Index 33.67 (97.52 kg, 170.18 cm) hb 09:00 Pain Scale: Adult hb ED Course: 08:45 Patient arrived in ED. mg5 08:56 Magi Lam, RN is Primary Nurse. db 09:00 Ely Montelongo PA-C is PHCP. sb4 09:00 Marilynn Charlton is Attending Physician. sb4 09:02 Triage completed. hb 09:05 Arm band placed on. hb 09:07 Patient has correct armband on for positive identification. Bed in low position. Call db light in reach. Side rails up X 1. Pulse ox on. NIBP on. 09:28 Initial lab(s) drawn, by me, sent to lab. First set of blood cultures drawn by me. em1 09:28 Inserted saline lock: 20 gauge in left antecubital area, using aseptic technique. Blood em1 collected. 09:33 Blood Culture Adult (2) Sent. em1 09:33 CBC with Diff Sent. em1 09:33 CMP Sent. em1 09:33 Lactate w/ 2H reflex if indic. Sent. em1 09:33 Procal Sent. em1 09:33 CRP Sent. em1 10:00 Second set of blood cultures drawn by me. em1 10:41 Hand Right 3 View XRAY In Process Unspecified. EDMS 11:09 Provided Education on: DISCHARGE AND HOME CARE WITH ANTIBIOTICS. db 11:09 No provider procedures requiring assistance completed. IV discontinued, intact, db bleeding controlled, No redness/swelling at site. Administered Medications: 10:11 Drug: Clindamycin IVPB 600 mg IVPB once over 30 mins; (mix in 50 mL) Route: IVPB; db Infused Over: 30 mins; Site: left antecubital; 10:39 Follow up: Response: No adverse reaction; IV Status: Completed infusion; IV Intake: 50mldb Medication: 11:09 VIS not applicable for this client. db Intake: 10:39 IV: 50ml; Total: 50ml. db Outcome: 10:57 Discharge ordered by MD. sb4 11:09 Discharged to home ambulatory, db 11:09 Condition: stable 11:09 Discharge instructions given to patient, Instructed on discharge instructions, follow up and referral plans. Prescriptions given X 1, 11:15 Patient left the ED. db Signatures: Dispatcher [employer] Trevor Zamora em1 Beatriz Monroe RN RN hb Benton, Danielle RN WADE db Ely Montelongo PA-C PA-C sb4 Daily Jurado mg5 Corrections: (The following items were deleted from the chart) 09:34 09:33 Inserted saline lock: 20 gauge in left antecubital area, using aseptic technique. em1 Blood collected. em1
--- NOTE | 2023-02-18 10:58 | EDPHYS ---
Physician Documentation [facility] Name: Alton Chung Age: 32 yrs Sex: Male : 1990 Arrival Date: 02/18/2023 Time: 08:43 Bed 13 Private MD: ED Physician Marilynn Charlton HPI: 02/18 09:37 This 32 yrs old Male presents to ER via Ambulatory with complaints of Finger Injury - sb4 Swelling/Spider Bite?. 09:37 The patient or guardian reports pain, swelling, tenderness. The complaints affect the sb4 right pointer finger. Onset: The symptoms/episode began/occurred 1 week(s) ago. patient states he noticed a possible bite or splinter on his right second finger PIP about 1 week ago. he states the redness has increased gradually over the week and now it surrounds his entire finger. additionally endorses pain and swelling. he is not sure what caused it. denies any fever, chills, chest pain, sob, nausea, vomiting. Historical: - Allergies: 09:02 No Known Allergies; hb - Home Meds: 09:02 Adderall Oral [Active]; hb 09:05 Adderall Oral [Active]; db - PMHx: 09:02 ADD/ADHD; hb 09:05 ADD/ADHD; db - PSHx: 09:02 Wrist - Right; Shoulder - Left; Leg - Left; Appendectomy; hb 09:05 Appendectomy; Leg - Left; Shoulder - Left; Wrist - Right; db - Immunization history:: Adult Immunizations up to date. - Social history:: Smoking status: . ROS: 09:37 Constitutional: Negative for fever, chills, and weight loss, sb4 09:37 Skin: Positive for cellulitis, erythema, swelling, of the right hand, 09:37 All other systems are negative, Exam: 09:37 Constitutional: This is a well developed, well nourished patient who is awake, alert, sb4 and in no acute distress. Head/Face: Normocephalic, atraumatic. Eyes: Extra-ocular motions intact. Periorbital areas with no swelling, redness, or edema. ENT: Mucous membranes moist. MS/ Extremity: Pulses equal, no cyanosis. Neurovascular intact. Full, normal range of motion. Neuro: Awake and alert, GCS 15, oriented to person, place, time, and situation. Motor strength 5/5 in all extremities. Sensory grossly intact. 09:37 Musculoskeletal/extremity: Joints: the PIP of right index finger displays painful range of motion, swelling, tenderness, 09:37 Skin: cellulitis, that is moderate, confluent, on the dorsal aspect of middle phalanx of right index finger, dorsal aspect of proximal phalanx of right index finger, palmar aspect of distal phalanx of right index finger, palmar aspect of middle phalanx of right index finger, palmar aspect of proxima; phalanx of right index finger and right index fingernail, Vital Signs: 09:00 BP 156 / 99; Pulse 59; Resp 16; Temp 97.5(TE); Pulse Ox 100% on R/A; Weight 97.52 kg; hb Height 5 ft. 7 in. ; Pain 2/10; 09:00 BP 145 / 101; Pulse 96; Resp 18; Pulse Ox 99% on R/A; db 10:30 BP 141 / 78; Pulse 85; Resp 16; Pulse Ox 97% ; db 09:00 Body Mass Index 33.67 (97.52 kg, 170.18 cm) hb 09:00 Pain Scale: Adult hb MDM: 09:00 Patient medically screened. sb4 09:37 Differential diagnosis: cellulitis, spider bite, abscess, osteomyelitis, tendonitis, sb4 tenosynovitis. 10:57 Data reviewed: vital signs, nurses notes, lab test result(s), radiologic studies, and sb4 as a result, I will discharge patient. Counseling: I had a detailed discussion with the patient and/or guardian regarding the historical points, exam findings, and any diagnostic results supporting the discharge/admit diagnosis, the presence of at least one elevated blood pressure reading (>120/80) during this emergency department visit, lab results, radiology results, to return to the emergency department if symptoms worsen or persist or if there are any questions or concerns that arise at home. 02/18 09:13 Order name: Blood Culture Adult (2) sb4 02/18 09:13 Order name: CBC with Diff; Complete Time: 09:54 sb4 02/18 09:13 Order name: CMP; Complete Time: 10:07 sb4 02/18 09:13 Order name: Lactate w/ 2H reflex if indic.; Complete Time: 10:05 sb4 02/18 09:13 Order name: Procal; Complete Time: 10:23 sb4 02/18 09:13 Order name: CRP; Complete Time: 10:07 sb4 02/18 09:13 Order name: Hand Right 3 View XRAY; Complete Time: 10:52 sb4 02/18 09:13 Order name: IV Saline Lock - Large Bore; Complete Time: 09:33 sb4 02/18 09:13 Order name: Labs collected and sent; Complete Time: 09:33 sb4 Administered Medications: 10:11 Drug: Clindamycin IVPB 600 mg IVPB once over 30 mins; (mix in 50 mL) Route: IVPB; db Infused Over: 30 mins; Site: left antecubital; 10:39 Follow up: Response: No adverse reaction; IV Status: Completed infusion; IV Intake: 50mldb Disposition Summary: 02/18/23 10:57 Discharge Ordered Notes: Location: Home sb4 Problem: an ongoing problem sb4 Symptoms: have improved sb4 Condition: Stable sb4 Diagnosis - Cellulitis of finger - right pointer(02/18/23 10:58) sb4 Followup: sb4 - With: Emergency Department - When: As needed - Reason: Trouble breathing, Worsening of condition Discharge Instructions: - Discharge Summary Sheet sb4 - Cellulitis, Adult, [id number] sb4 Forms: - Medication Reconciliation Form sb4 - Thank You Letter sb4 - Antibiotic Education sb4 - Prescription Opioid Use sb4 - Patient Portal Instructions sb4 - Leadership Thank You Letter sb4 Prescriptions: - Clindamycin HCl 300 mg Oral Capsule - take 1 capsule ORAL route every 6 hours for 10 days; 40 capsule; Refills: 0, sb4 Product Selection Permitted Addendum: 02/27/2023 09:11 I reviewed the patient's care provided by the Advanced Practice Provider and agree with c i the diagnosis and treatment plan. Signatures: Dispatcher [employer] Beatriz Loomis, RN RN Magi Jay, RN RN Ely Chang PA-C PA-C sb4 [email or web address] ci Corrections: (The following items were deleted from the chart) 02/18 10:58 10:57 Cellulitis of finger sb4 sb4
[2023-02-18 11:30] VITALS: TEMP 97.5
[2023-02-18 11:31] VITALS: BP 141/78; O2SAT 97
== END 2023-02-18 11:15 | disposition home or self-care (01) ==
LOC: ER 08:43
DX: L03.011 Cellulitis of right finger (principal); F90.9 Attention-deficit hyperactivity disorder, unspecified type
CPT/HCPCS: 36415; 80053; 83605; 84145; 85025; 86140; 87040; 96365; 99284